=== PATIENT | female | born 1975 | race Hispanic/Latino ===

== ENCOUNTER → 2018-08-29 07:46 | Outpatient (CLI) | payer BC, SELFPAY ==
--- NOTE | 2018-08-29 | DI.MRI.S_ITS ---
PROCEDURE: MRFOOT LT WO CON INDICATIONS: ATFL RUPTURE TECHNIQUE: Noncontrast sagittal T1 spin echo and T2 fast spin echo with fat saturation, long-axis T1 spin echo and T2 fast spin echo with fat saturation, short-axis T1 spin echo and T2 fast spin echo with fat saturation through the forefoot. COMPARISON: None. FINDINGS: Image quality: Excellent. Bones and joints: No bone marrow contusions or metatarsal stress fractures. The sesamoid bones appear in expected positions, without internal edema. Mild osteoarthritic changes are noted involving first and fifth MTP joints. No intraosseous lesions. Soft tissues: The visualized plantar foot muscles demonstrate normal signal and bulk. Visualized flexor and extensor tendons appear intact, without tenosynovitis. The distal insertions of the peroneus brevis and longus tendons appear intact. The principal Lisfranc ligament appears intact. No soft tissue ganglion cysts or bursal fluid collections. Sagittal images demonstrate no evidence for plantar plate tears. IMPRESSION: 1. Mild osteoarthritic changes in forefoot joints. No fracture or dislocation. No marrow edema. 2. Focal tendons and ligaments are grossly intact. Dictated by: Sergio Nieves M.D. on 08/29/2018 at 12:30 Approved by: Sergio Nieves M.D. on 08/29/2018 at 12:54
--- NOTE | 2018-08-29 | DI.MRI.S_ITS ---
PROCEDURE: MR ANKLE LT WO CON INDICATIONS: ATFL RUPTURE TECHNIQUE: Noncontrast sagittal T1 spin echo and T2 fast spin echo with fat saturation, axial proton density fast spin echo and T2 fast spin echo with fat saturation, coronal T1 spin echo and T2 fast spin echo with fat saturation through the ankle/hindfoot. COMPARISON: None. FINDINGS: Image quality: Excellent. Bones and joints: No bone marrow contusions or fractures. No hindfoot coalitions. No osteochondral injuries of the talar dome. No pathologic joint effusions. Medial structures: The posterior tibialis, flexor digitorum longus, and flexor hallucis longus tendons are intact. The posterior tibial neurovascular bundle appears normal within the tarsal tunnel, without extrinsic mass effect. The superficial component of the deltoid ligament is intact. There is sprain/low-grade intrasubstance partial thickness or involving deep components of deltoid ligament. The spring ligament complex sprain/partial thickness tear is also seen. Lateral structures: Attenuated appearing anterior talofibular ligament is seen suggestive of moderate grade partial-thickness tear. The calcaneofibular appears intact. The posterior talofibular ligament is thickened with heterogeneous internal fluid signal suggestive of sprain/low-grade partial-thickness tear. More superiorly, the anterior and posterior tibiofibular ligaments appear intact, as is the intermalleolar ligament. The tibiofibular syndesmosis is normal in width at 2 mm or less. The peroneus longus and brevis tendons demonstrate normal location and morphology. Adjacent bony peroneal tubercle and retrotrochlear prominence are normal in size. The sinus tarsi demonstrates normal fatty signal, without edema, fibrosis, or cyst formation. Visualized sinus tarsi components (cervical ligament, interosseous talocalcaneal ligament, roots of the inferior extensor retinaculum) appear normal. The calcaneonavicular and calcaneocuboid components of the bifurcate ligament appear intact. The dorsal calcaneocuboid ligament appears intact. Anterior structures: The tibialis anterior, extensor hallucis longus, and extensor digitorum longus tendons appear intact. The dorsal talonavicular ligament appears intact. Posterior and plantar structures: Achilles tendon is intact. Mildly thick in the plantar aponeurosis near its insertion on plantar aspect of calcaneus is seen. No abductor digiti quinti muscle atrophy to suggest Ahumada neuropathy. IMPRESSION: 1. Sprain/partial thickness tear involving deep fibers of deltoid ligament as well as spring ligament complex. 2. Moderate grade partial-thickness involving anterior talofibular ligament. Sprain/low-grade intrasubstance partial thickness involving posterior talofibular ligament. 3. Suggestion of low-grade plantar fasciitis with mildly thickened plantar aponeurosis near its inferior calcaneal insertion. 4. No marrow edema. No fracture or dislocation. 5. Ankle tendons are grossly intact. Dictated by: Sergio Nieves M.D. on 08/29/2018 at 11:28 Approved by: Sergio Nieves M.D. on 08/29/2018 at 11:45
== END ==
PROVIDERS: PCP Nurse Practitioner Family; Visit Provider Podiatrist Foot & Ankle Surgery
DX: S93.422A Sprain of deltoid ligament of left ankle, initial encounter (principal); S93.492A Sprain of other ligament of left ankle, initial encounter; M19.072 Primary osteoarthritis, left ankle and foot
CPT/HCPCS: 73718; 73721

== ENCOUNTER → 2023-11-25 07:52 | Outpatient (CLI) | payer OTHER, SELFPAY ==
--- NOTE | 2023-11-25 07:54 | DI.US.S_ITS ---
PROCEDURE: US PELVIC COMPLETE INDICATIONS: abnormal vaginal bleeding x 20 days with clots/spotting now TECHNIQUE: Real-time scanning was performed of the pelvic organs, with image documentation. Additional endovaginal scanning was necessary due to incomplete visualization of the adnexal and endometrial structures by transabdominal scanning. COMPARISON: None. FINDINGS: Uterus: Uterus is anteverted and normal in size at 9.9x6.6x5.8 cm. The myometrium is homogeneous. The endometrium measures 4 mm combined thickness. Nabothian cysts, the largest of which measures up to 1.6 cm. Well positioned IUD. Ovaries: The right ovary measures 2.8x1.6x1.12 cm, with a calculated ovarian volume of 2.8 cc. The left ovary measures 3.3x2.8x2.1 cm, with a calculated ovarian volume of 10.1 cc. The ovaries have a normal sonographic appearance. Within the left ovary, there is a dominant follicle measuirng up to 1.6 cm. Less than 12 follicles can be seen in each ovary No adnexal masses are seen. Other: No pathologic free abdominal or pelvic fluid. IMPRESSION: Well positioned IUD. Nabothian cysts, the largest of which measures up to 1.6 cm. The ovaries have a normal sonographic appearance. Within the left ovary, there is a dominant follicle measuirng up to 1.6 cm. This can be followed in 2-3 menstraul cycles to ensure resolution. We strive to produce accurate, complete, and clear reports of imaging services. To assist us in improving patient care, this report was composed using standard report templates and voice recognition software. Therefore, it may contain abnormal punctuation, insertions and/or omissions. Occasional wrong-word or sound-alike substitutions may occur. Though we review the report and make efforts to correct it, we do recommend that the report be read carefully in proper context to recognize any text inaccuracies. Dictated by: Sylvester Calzada M.D. on 11/25/2023 at 12:07 Approved by: Sylvester Calzada M.D. on 11/25/2023 at 12:19
== END ==
PROVIDERS: PCP Physician Assistant; Referring Provider Student in an Organized Health Care Education/Training Program; Visit Provider Student in an Organized Health Care Education/Training Program
DX: N92.6 Irregular menstruation, unspecified (principal); N88.8 Other specified noninflammatory disorders of cervix uteri; Z87.42 Personal history of other diseases of the female genital tract; Z97.5 Presence of (intrauterine) contraceptive device
CPT/HCPCS: 76830; 76856

== ENCOUNTER → 2025-01-23 13:46 | Outpatient (CLI) | payer BC, SELFPAY ==
--- NOTE | 2025-01-23 13:49 | DI.MRI.S_ITS ---
PROCEDURE: MR KNEE RT WO CON INDICATIONS: sprain of right knee TECHNIQUE: Noncontrast sagittal PD fast spin echo and T2 fast spin echo with fat saturation, sagittal 3-D FLASH with fat saturation; coronal T1 spin echo and PD fast spin echo with fat saturation, and axial PD fast spin echo with fat saturation through the knee. COMPARISON: None. FINDINGS: Image quality: Excellent. Menisci: Multidirectional degenerative tear the anterior body horn junction, body, and posterior horn the medial meniscus with with multi-directional maceration the meniscal body. The body is severely extruded and uncovers the weight-bearing articular surface. Intrasubstance degeneration extends to the posterior root of the medial meniscus. Incomplete radial tear of the posterior horn root junction the medial meniscus (8/). Ligaments: Mild mucoid degeneration of the anterior cruciate ligament without acute tear. Intact posterior cruciate ligament. Intact medial collateral ligament. Intact fibular collateral ligament. The posterolateral supporting structures are intact. The posterolateral supporting structures are intact. Partial tear of the tibial insertion of semimembranosus. Sprain and scarring of the posterior medial corner secondary to large medially directed posterior condylar osteophytosis. Extensor Mechanism: Quadriceps tendon is intact. Mild insertional tendinosis of the patellar tendon. The patellar retinacula are intact. Osseous Structures: There is no fracture or dislocation. No suspicious marrow replacing process. Small joint effusion. Hoffa's fat pad is unremarkable. Articular Cartilage: Patellofemoral compartment: Grade 4 chondromalacia in the patellar lateral facet and lateral femoral trochlea. Medial compartment: Grade 4 chondromalacia of the central and peripheral condylar and tibial articular cartilage. Lateral compartment: Grade 2 thinning in fraying of the central weight-bearing articular cartilage. Other: Low-grade partial tearing of the tibial insertion of the semimembranosus ge. No Eagle's cyst. Normal neurovascular signal. Subcutaneous soft tissues appear normal. IMPRESSION: 1. 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 2. Degenerative tearing and maceration of the medial meniscus. 3. Incomplete radial tear of the posterior horn root junction of the lateral meniscus. 4. Scarring and sprain of the posterior medial corner secondary to large medially directed osteophytes along the posterior femoral condyle. 5. Low-grade partial tearing of the insertional semimembranosus. Dictated by: Dirk Howe M.D. on 01/23/2025 at 16:13 Approved by: Dirk Howe M.D. on 01/23/2025 at 16:20
== END ==
LOC: MRI 13:48
PROVIDERS: PCP Physician Assistant; Referring Provider Physician Assistant; Visit Provider Physician Assistant
DX: S83.241A Other tear of medial meniscus, current injury, right knee, initial encounter (principal); S83.8X1A Sprain of other specified parts of right knee, initial encounter; M22.41 Chondromalacia patellae, right knee; X58.XXXA Exposure to other specified factors, initial encounter
CPT/HCPCS: 73721